=== PATIENT | male | born 1945 | race Caucasian/White ===

== ENCOUNTER → 2017-03-13 | Day surgery (SDC) | payer OTHER ==
[~2017-03-13] MED LIST: ACETAMINOPHEN PO; ASPIRIN81 M1 PO; B-COMPLEX-VITA1 EACH PO; DAILY VALUE1 EACH; DAILY VALUE1 EACH PO; FOLIC ACID1 MG PO; LEVOFLOXACIN500 MG PO; LIPITOR40 MG PO; LISINOPRIL2.5 MG PO; LORTAB 7.51 TAB 7.5/ PO; LOW DOSE ASPIRI81 M2 PO; MULTI VITAMIN1 EACH PO; MULTIVITAMIN1 UDCAP PO; NITROGLYCERIN0.4 MG SL; OMEPRAZOLE20 M1 PO; OMEPRAZOLE20 M2 PO; PLAVIX PO; PREVACID PO; PROTONIX PO; TOPROL XL PO; TYLENOL325 M1 PO; ZESTRIL2.5 M1 PO; ZOFRAN PO
--- NOTE | ~2017-03-13 | OR ---
Unit #: [id number] #: [id number] Patient: ARCADIO CRUZ [id number] [address] [place], [place] [address] [id number] O MR#: [id number] NAME: ARCADIO CRUZ ROOM: Date of Procedure: 03/13/2017 Admission Date: 03/13/2017 Surgeon: Satinder Vásquez M.D. : 1945 Attending Physician: Satinder Vásquez M.D. Primary Care Physician: Curtis Sanders M.D. OPERATIVE REPORT PREOPERATIVE DIAGNOSES Colorectal cancer surveillance. The patient has history of colonic polyps with high-grade dysplasia. He is status post cecal resection for a large villous adenoma with high-grade dysplasia. PROCEDURES PERFORMED Colonoscopy and polypectomy. POSTOPERATIVE DIAGNOSES 1. The patient has a huge pedunculated polyp in the sigmoid colon. Unfortunately, the latter was removed over a prolonged period of time in piecemeal just because the shear size of the polyp and fairly limited space in the sigmoid colon making removal of the polyp extremely challenging. The polyp in the sigmoid colon was about 4 cm in size. 2. A 2 cm sessile polyp in the descending colon removed using snare cautery polypectomy. 3. Three polyps in the proximal ascending colon removed using snare cautery polypectomy. These were small about 5 to 8 mm each. 4. Moderate pandiverticulosis. 5. Rest of the examination up to ileocolonic anastomosis in the right colon was normal. The quality of the prep was good. RECOMMENDATIONS 1. The polyp in the sigmoid colon is quite disturbing in appearance and we ended up putting a considerable amount of heat using snare cautery making the stalk nearly opaque. As a result, careful attention was paid to post recovery and CT scan of the abdomen and pelvis done to rule perforation. The patient was discharged home with clearcut instructions to follow up promptly in case of any pain in the abdomen. 2. The patient will require a repeat examination in 3 months when attention will be focused on the residual polyp tissue left behind the sigmoid area. SEDATION USED MAC. DESCRIPTION OF PROCEDURE Following detailed explanation of potential risks and complications of a colonoscopy, namely perforation, bleeding, and complications related to sedation, the patient was brought to GI lab and laid in the left lateral decubitus position. A digital rectal examination was performed, which was Unit #: [id number] #: [id number] Patient: ARCADIO CRUZ normal. Lubricated tip of the Olympus video colonoscope was inserted through the anus and advanced under direct vision. The scope was advanced past rectum into the sigmoid colon. Multiple medium-sized diverticula were seen in this area. In addition, a large pedunculated polyp was noted in this area. The polyp stalk was huge and the polyp head measured about 4 cm. The scope was then advanced past this area into the descending colon. Again multiple diverticula were noted and in addition, a medium sized polyp about 2 cm in size was seen in this area. The scope was then navigated all the way up to cecum with visualization of ileocecal valve and the appendiceal orifice. Preparation was good with good visualization. Photodocumentation was obtained. Last few inches of the terminal ileum also visualized after intubation of the ileocecal valve and appeared normal. Successive segments of the colonic mucosa were examined upon withdrawal. The patient was noted to have 3 sessile polyps in the proximal mid ascending colon. These were removed using snare polypectomy. The polyp in the sigmoid colon was removed using snare cautery polypectomy. It was about 2.5 cm in size. The attention was focused on the sigmoid polyp. It was impossible to completely encircle the polyp with the snare because of shear size of the polyp and fairly limited space in the sigmoid colon. Using a larger snare, large parts of the polyp head were removed with extreme caution. The residual polyp tissue that was left behind was carefully assessed and since stalk head started opacifying due to electrocautery, it was decided to come back in about 3 months and visualize the area as considerable part of polyp is likely necrosed. This will also give us the pathology of the polyp to ensure there was no thierry invasive cancer in it. The patient did have moderate pandiverticulosis and small internal hemorrhoids at the anal verge were also seen. The scope was then withdrawn. The patient returned to the recovery area. He was carefully observed for a couple of hours in the postrecovery area and a CT scan of the abdomen and pelvis also done to rule out perforation before the patient being discharged. Dictated by... Florencio Stein TD: 03/14/2017 07:30 JOB #: [id number] OPERATIVE REPORT Page 1 of 1 X Satinder Vásquez MD PROCEDURE OPERATIVE NOTE
--- NOTE | ~2017-03-13 | CT2 ---
[facility] A Service of [facility] RADIOLOGY TEXT RESULTS PATIENT: ARCADIO CRUZ LOCATION: [facility] : 45 UNIT #: [id number] AGE: [address]: Satinder Vásquez MD SEX: M ORDER DR: [id number] [facility] [address] [place], [place] [address] [id number] O MR#: [id number] Acc #: [id number] NAME: ARCADIO CRUZ : 1945 SEX: M STUDY DATE/TIME: 03/13/2017 UNIT: [facility] ROOM: STUDY DESCRIPTION: CT Abd and Pelv W Cont Attending Physician: Satinder Vásquez M.D. Ordering Physician: Satinder Vásquez M.D. Primary Care Physician: Curtis Sanders M.D. MEDICAL IMAGING REPORT This report is preliminary unless electronic signature is present EXAM CT abdomen and pelvis with contrast 03/13/2017 1449 hours HISTORY Patient complains of abdominal pain after colonoscopy today. Patient underwent colonoscopy and several polyps were removed today. COMPARISON None. TECHNIQUE Dynamic helical CT images were obtained from the lung bases through the pubic symphysis with intravenous contrast. Sagittal and coronal reconstructions were performed. Contrast was Isovue-370 100 mL IV. Total exam DLP 69 mGy/cm. This CT exam was performed with one or more of the following radiation dose reduction techniques: automatic exposure control, adjustment of mA and/or kV according to patient size, and iterative reconstruction. FINDINGS Images through the lung bases demonstrate a clear right lung. There is ground-glass density in the left lower lobe which could represent atelectasis versus developing pneumonia. There is no effusion. Images through the abdomen demonstrate a normal appearance to the liver and spleen. The pancreas, gallbladder, bile ducts and adrenal glands are normal. The kidneys enhance normally. There is a simple cyst laterally in the lower pole right kidney measuring 4.7 cm and only 5 Hounsfield units consistent with a simple cyst. There are no renal or ureteral calculi. There are atherosclerotic calcifications of the abdominal aorta with maximal dimension 2.6 cm. The stomach has an increased amount of fluid. There is no gastric lesion. There is increased fluid and gas in the small bowel without small bowel STS. [facility] A Service of [facility] RADIOLOGY TEXT RESULTS PATIENT: ARCADIO CRUZ LOCATION: [facility] : 45 UNIT #: [id number] AGE: [address]: Satinder Vásquez MD SEX: M ORDER DR: wall thickening. Findings suggest mild ileus. There is increased fluid in the cecum and ascending colon. There is an area of colonic anastomoses at the cecum/ascending colon junction with no wall thickening. The ascending colon, transverse colon are normal. Descending colon demonstrates numerous diverticula but no distension or wall thickening. There are numerous diverticula in the sigmoid colon but no distension or wall thickening. There is no definite free air seen. CT pelvis is negative. IMPRESSION There is increased fluid in the small bowel and cecum. The colon demonstrates diverticulosis of the descending colon and sigmoid colon without evidence of wall thickening. There is no free air or free fluid. Dictated by... Meagan Antunez M.D. THIS IS AN ELECTRONICALLY VERIFIED REPORT Meagan Antunez M.D. at 03/14/2017 9:25 AM Jarrell TD: 03/13/2017 23:47 JOB #: [id number] MEDICAL IMAGING REPORT Page 1 of 1 COPY
[2017-03-13 18:35] LABS: POC - GFR >60.0 mL/min (>60)
== END | disposition home or self-care (01) ==
LOC: COPS 06:01
PROVIDERS: Internal Medicine Gastroenterology
DX: Z12.11 Encounter for screening for malignant neoplasm of colon (principal); D12.2 Benign neoplasm of ascending colon; D12.3 Benign neoplasm of transverse colon; D12.4 Benign neoplasm of descending colon; D12.5 Benign neoplasm of sigmoid colon; K57.30 Diverticulosis of large intestine without perforation or abscess without bleeding; K64.8 Other hemorrhoids; I25.2 Old myocardial infarction; I10 Essential (primary) hypertension; Z86.010 Personal history of colon polyps; Z87.19 Personal history of other diseases of the digestive system; Z87.891 Personal history of nicotine dependence; Z88.0 Allergy status to penicillin; Z79.82 Long term (current) use of aspirin; Z79.899 Other long term (current) drug therapy; Z95.5 Presence of coronary angioplasty implant and graft; Z95.0 Presence of cardiac pacemaker; Z90.49 Acquired absence of other specified parts of digestive tract; Z98.890 Other specified postprocedural states
CPT/HCPCS: 74177; 82565; 88305; J2250; Q9967